=== PATIENT | female | born 1995 | race Caucasian/White ===

== ENCOUNTER 2016-11-26 15:18 | Emergency (ER) | payer OTHER ==
[~2016-11-26 15:18] MED LIST: ADDERALL20 MG DOB; ADDERALLXR PO; ANTACID; BACTRIM DS TABL1 TA1 PO; CONCERTA PO; FAMOTIDINE PO; NO MEDICATIONS; PREDNISONE PO; STRATTERA PO
== END 2016-11-26 16:18 | disposition home or self-care (01) ==
LOC: SED 15:18
DX: Z48.01 Encounter for change or removal of surgical wound dressing (principal); F17.200 Nicotine dependence, unspecified, uncomplicated
CPT/HCPCS: 96372; 99283

== ENCOUNTER 2016-11-29 23:02 | Emergency (ER) | payer OTHER | END 2016-11-30 00:18 | disposition home or self-care (01) | LOC: SED 23:02 | DX: Z48.01 Encounter for change or removal of surgical wound dressing (principal) | CPT/HCPCS: 84703; 99283 ==